=== PATIENT | male | born 1995 | race Caucasian/White ===

== ENCOUNTER → 2019-12-15 | Day surgery (SDC) | payer BC, OTHER ==
[~2019-12-15] VITALS: Ht 177.8 cm; Wt 96.2 kg
[~2019-12-15] MED LIST: EPIPEN0.3 MG/0.1 IM; FLOVENT HFA12 G1 INH; NORCO 5-325 TA1 EAC2 PO; VENLAFAXINE HCL75 M2 PO; VENTOLIN HFA 1818 GM INH
[2019-12-15 13:45] VITALS: BP 156/87
[2019-12-15 16:34] VITALS: BP 156/87
--- NOTE | 2019-12-19 17:06 | PATH ---
[facility] [address] [place] [address] PATHOLOGY RPT PROCEDURE Name: BHAVANA SELLERS Room #: [place] [facility].#: [id number] Admission: 12/15/19 Date of : 89 Discharge: Report #: [id number] Path Case #: [id number] [facility] Accession Number: [id number] . 01 Material submitted: . hernia - RIGHT CORD LIPOMA. Modifiers: right . 01 Clinical history: . INGUINAL HERNIA, RIGHT . 02 Diagnosis: Mature adipose tissue, right cord lipoma, excision: - Compatible with a lipoma. (IUV:superintendent circus; 12/19/2019) MBR 12/19/2019 1217 Local . 02 Electronically signed: . Siria Castaneda MD, Pathologist NPI- [id number] . 01 Gross description: . The specimen is received in formalin, labeled "Bhavana Davion, right cord lipoma". Received is a segment of yellow-amaya lobulated tissue measuring 4.3 x 1.2 x 0.5 cm in greatest dimensions. Sectioning reveals bright yellow cut surfaces with no grossly distinct nodules or lesions. The specimen is submitted representatively in cassette A1. (CAA; 12/18/2019) QAC/QA 12/18/2019 1147 Local . 02 Pathologist provided ICD-10: K40.90 . 02 CPT . 493144 Specimen Comment: A courtesy copy of this report has been sent to [phone] Specimen Comment: [id number] Specimen Comment: Report sent to / DR OWEN Performed at: [address], [place] [id number] MD Robbie Silverio MD Phone: [phone] Performed at: [address] [id number] MD Siria Castaneda MD Phone: [phone]
--- NOTE | 2019-12-20 12:30 | O ---
[facility] [place] [address] OPERATIVE REPORT Name: BHAVANA SELLERS Room #: REG [facility].#: [id number] Admission: 12/15/19 Attend Phys: Adan Molina MD Discharge: Date of : [birth year] Report #: [id number] THIS REPORT FOR: cc: Hoang Goddard MD, Douglas James MD Franey,Adan Zabala MD ~ CC: Hoang Molina DATE OF SERVICE: 12/15/[address] Adan Molina, Dr. Hoang Goddard. PREOPERATIVE DIAGNOSIS: Right inguinal hernia. POSTOPERATIVE DIAGNOSIS: Right inguinal hernia with a right cord lipoma. PROCEDURE: Right inguinal hernia repair with Prolene hernia system mesh and excision of a right cord lipoma. SURGEON: Adan Molina MD ANESTHESIA: Local IV sedation. DESCRIPTION OF PROCEDURE: The patient was brought to the operating room and placed on operative table in the supine position. Sequential compression devices were in place for DVT prophylaxis. There was no indication for preoperative antibiotics. The patient underwent IV sedation. The right inguinal area was prepped and draped in a sterile fashion. Skin and subcutaneous tissue were then infiltrated with 0.5% Marcaine and 1% Xylocaine in a 1:1 mixture. Right inguinal skin incision was then performed using #10 scalpel blade. Hemostasis was obtained using electrocautery. Dissection was carried down through subcutaneous tissue using the electrocautery. Further hemostasis was obtained with clamps and 2-0 chromic ties. The external oblique fascia was then identified and incised with a knife and opened with the Metzenbaum scissors. The ilioinguinal nerve was identified, dissected free, injected with local mixture and preserved. The cord was then elevated, held in place with Elwood drain. Cremasteric muscle fibers were then split in the direction of their fibers using a clamp and electrocautery. An indirect inguinal hernia sac was identified and dissected free. A cord lipoma was identified, dissected free, clamped, excised and tied with 2-0 chromic ties. The hernia sac was reduced back through the internal ring and an extended Prolene hernia system mesh was then inserted through the internal ring and the underlay patch was then deployed in the preperitoneal space. Connector was left in the internal ring and the overlay patch was then deployed into the inguinal [address] [address] OPERATIVE REPORT Name: BHAVANA SELLERS Room #: [place] [facility] [place] Med.#: [id number] Admission: 12/15/19 Attend Phys: Adan Molina MD Discharge: Date of : 89 Report #: [id number] canal. The mesh was secured at the pubic tubercle superiorly using simple interrupted 2-0 Vicryl suture. The mesh was also secured at the connector using simple interrupted 2-0 Vicryl suture. The mesh was split and wrapped around the cord, secured to the inguinal ligament with simple interrupted 2-0 Vicryl suture. The cord and ilioinguinal nerve were then returned to the canal intact. The external oblique fascia was then closed using running 2-0 Vicryl suture. Mallorie's fascia was then reapproximated using 3 simple interrupted 2-0 chromic sutures and the skin then closed with a running 4-0 subcuticular Vicryl stitch. Wound was then dressed with Mastisol, 1/2-inch Steri-Strips cut in half, Telfa, 4 x 4 gauze, sponge and tape. The patient was then awakened from the IV sedation, taken to recovery room in good condition. Estimated blood loss was approximately 10 mL and the patient tolerated procedure well. All sponge, lap and instrument counts correct x2. <ELECTRONICALLY SIGNED> By: Adan Molina MD 12/20/19 1230 1623 1723 Adan Molina MD /nt
== END | disposition home or self-care (01) ==
LOC: OR 11:02
PROVIDERS: ATTEND Surgery
DX: K40.90 Unilateral inguinal hernia, without obstruction or gangrene, not specified as recurrent (principal); D17.6 Benign lipomatous neoplasm of spermatic cord; J45.909 Unspecified asthma, uncomplicated; F32.9 Major depressive disorder, single episode, unspecified; Z98.890 Other specified postprocedural states; Z79.899 Other long term (current) drug therapy
CPT/HCPCS: 50010; 50101; 50386; 50417; 54111; 56524; 56526; 56528; 62110; 62850; 70005